=== PATIENT | male | born 2000 | race Caucasian/White ===

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

== ENCOUNTER 2023-07-22 12:37 | Emergency (ER) | payer OTHER ==
[~2023-07-22] VITALS: Ht 185.4 cm; Wt 74.8 kg
[~2023-07-22 12:37] MED LIST changes: +BACITRAYCIN PLU28 G1 T; +CEPHALEXIN500 M1 PO
[2023-07-22] MEDS ORDERED: CYCLOBENZAPRINE5 M3 PO (14:15)
== END 2023-07-22 14:23 | disposition home or self-care (01) ==
LOC: ED 12:37
DX: M75.42 Impingement syndrome of left shoulder (principal); F90.9 Attention-deficit hyperactivity disorder, unspecified type